=== PATIENT | male | born 1965 | race Caucasian/White ===

== ENCOUNTER 2017-01-07 19:32 | Emergency (ER) | payer SELFPAY ==
[2017-01-07 19:44] VITALS: BP 155/92
--- NOTE | 2017-01-07 20:02 | UC ---
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) - History Of Current Complaint Chief Complaint: UCUpperExtremity Stated Complaint: WRIST INJURY (WC) Time Seen by Provider: 01/07/17 19:51 Hx Obtained From: Patient Onset/Duration: Sudden Onset, Lasting Hours Severity Initially: Moderate Severity Currently: Mild Pain Intensity: 3 - worse with movement Pain Scale Used: 0-10 Numeric Character Of Pain: Sharp, Aching Aggravating Factor(s): Movement Alleviating: Rest Associated Signs And Symptoms: Positive: Swelling Related History: Occupational Injury, Dominant Hand Right - Allergies/Home Medications Allergies/Adverse Reactions: Allergies Allergy/AdvReac Type Severity Reaction Status Date / Time No Known Allergies Allergy Verified 01/07/17 19:44 PMH/Surg Hx/FS Hx/Imm Hx Previously Healthy: Yes - Surgical History Surgical History: Yes Surgery Procedure, Year, and Place: Intrathecal pump for opioids and pain control [place] [facility] [place] SYNCHROMED II INTRATHECAL PUMP 1.5 ONLY) PUMP REPLACED 2011; Right Meniscus Repair 03/18/15 - Family History Known Family History: Positive: Hypertension - Social History Alcohol Use: Occasionally Alcohol Amount: 2-3 PER YEAR Substance Use Type: None Substance Use Comment - Amount & Last Used: intrathecal hydromorphone KLONIDINE Smoking Status (MU): Never Smoked Tobacco Have You Smoked in the Last Year: No Review of Systems Constitutional: Negative Skin: Negative Eyes: Negative ENT: Negative Respiratory: Negative Cardiovascular: Negative Gastrointestinal: Negative Genitourinary: Negative Motor: Negative Neurovascular: Negative Musculoskeletal: Arthralgia Neurological: Negative Psychological: Negative Is Patient Immunocompromised?: No All Other Systems Reviewed And Are Negative: Yes Physical Exam Triage Information Reviewed: Yes Appearance: Well-Appearing, No Pain Distress, Well-Nourished Vital Signs: Initial Vital Signs Temp 98 F 01/07/17 19:39 Pulse 70 01/07/17 19:39 Resp 16 01/07/17 19:39 BP 155/92 01/07/17 19:39 Pulse Ox 98 01/07/17 19:39 Vital Signs Reviewed: Yes Eyes: Positive: Conjunctiva Clear, Other: - small pupils ENT: Positive: Hearing grossly normal. Negative: Nasal congestion, Nasal drainage, Trismus, Muffled/hoarse voice Neck: Positive: Supple, Nontender Respiratory: Positive: Lungs clear, Normal breath sounds, No respiratory distress Cardiovascular: Positive: RRR, No Murmur Musculoskeletal: Positive: Other: - see image Neurological: Positive: Alert Psychological Exam: Normal Skin Exam: Normal Hand/Wrist Course/Dx - Differential Dx/Diagnosis Provider Diagnoses: left wrist sprain /suspect triangular fibrocartilage tear Discharge - Discharge Plan Condition: Stable Disposition: HOME Patient Education Materials: Wrist Sprain (ED) Referrals: Jose L White MD [Medical Doctor] - As Soon As Possible Janae Love MD [Primary Care Provider] - Additional Instructions: ice twice daily splint I am concerned you injured your triangular cartilage of the wrist I suggest ortho follow up Images Hands: 1 - tender/swollen
--- NOTE | 2017-01-07 20:26 | RAD ---
INDICATION: LEFT wrist pain following injury yesterday. Pain through distal radius and ulnar styloid process. COMPARISON: No relevant prior exams available on the [facility] [place]. TECHNIQUE: AP, lateral, and oblique views LEFT wrist. REPORT AND IMPRESSION: Negative for fracture or malalignment. No significant arthropathic change. Soft tissue swelling most prominent over the ulnar and volar aspects. Negative for subcutaneous emphysema.
== END 2017-01-07 21:06 | disposition home or self-care (01) ==
LOC: UCEAST 19:32
DX: S63.502A Unspecified sprain of left wrist, initial encounter (principal); X50.9XXA Other and unspecified overexertion or strenuous movements or postures, initial encounter; Y93.89 Activity, other specified; Y92.129 Unspecified place in nursing home as the place of occurrence of the external cause; Y99.0 Civilian activity done for income or pay
CPT/HCPCS: 99212; G0463

== ENCOUNTER 2020-02-08 00:54 | Inpatient (IN) ==
[2020-02-08] MEDS ORDERED: HYDROmorphone 1 MG/1 ML SYRINGE IV SLOW PU ONE (02:20)
[2020-02-08] MEDS ORDERED: Ondansetron 4 mg VIAL 2 MG/ML 2 ml VIAL IV ONE (02:27)
[2020-02-08 02:58] LABS: ABS Basophils 0.1 10^3/ul (0-0.2); ABS Eosinophils 0.5 10^3/ul (0-0.6); ABS Lymphocytes 1.8 10^3/ul (1.0-4.8); ABS Monocytes 0.6 10^3/ul (0-0.8); ABS Neutrophils 7.7 10^3/ul (1.5-7.7); Eosinophil % 4.9 %; Hematocrit 42 % (42-52); Hemoglobin 14.3 g/dL (14.0-18.0); Lymphocyte % 16.8 %; Mean Corpuscular HGB Conc 34 g/dL (31-36); Mean Corpuscular Hemoglobin 29 pg (27-31); Mean Corpuscular Volume 84 fL (80-94); Mean Platelet Volume 7.2 fL (7.4-10.4); Platelet Count 309 10^3/uL (150-450); Red Blood Count 4.96 10^6 /uL (4.18-5.48); Red Cell Distribution Width 13 % (10-15); White Blood Count 10.7 10^3/uL (3.5-10.8)
[2020-02-08 03:03] LABS: INR 1.1 (0.82-1.09)
[2020-02-08 03:07] LABS: Albumin 4.3 g/dL (3.2-5.2); Calcium 9.4 mg/dL (8.6-10.3); Potassium 3.7 mmol/L (3.5-5.0); Total Bilirubin 0.5 mg/dL (0.2-1.0)
[2020-02-08 03:14] LABS: Albumin/Globulin Ratio 1.2 (1-3); BUN/Creatinine Ratio 21.2 (8-20); EGFR African American 95.3 (>60); EGFR Non-African American 78.8 (>60); Globulin 3.5 g/dL (2-4); Total Protein 7.8 g/dL (6.4-8.9)
[2020-02-08 03:15] LABS: Troponin I 0.01 ng/mL (<0.03)
[2020-02-08] MEDS ORDERED: ORPHENADRINE CITRATE 100 MG PO PRN (05:17)
[2020-02-08] MEDS: HYDROmorphone 1 MG/1 ML SYRINGE IV PRN ×2 (06:06→11:49)
[2020-02-08 19:40] LABS: ABS Basophils 0.1 10^3/ul (0-0.2); ABS Eosinophils 0.3 10^3/ul (0-0.6); ABS Lymphocytes 2.1 10^3/ul (1.0-4.8); ABS Monocytes 0.5 10^3/ul (0-0.8); Eosinophil % 2.8 %; Hematocrit 41 % (42-52); Hemoglobin 13.6 g/dL (14.0-18.0); Mean Corpuscular HGB Conc 34 g/dL (31-36); Mean Corpuscular Hemoglobin 28 pg (27-31); Mean Corpuscular Volume 84 fL (80-94); Platelet Count 296 10^3/uL (150-450); Red Blood Count 4.86 10^6 /uL (4.18-5.48); Red Cell Distribution Width 13 % (10-15)
[2020-02-08 19:40] LABS: Urine Appearance Clear; Urine Bilirubin Negative (Negative); Urine Blood Negative (Negative); Urine Color Yellow; Urine Glucose Negative (Negative); Urine Ketones Negative (Negative); Urine Nitrite Negative (Negative); Urine Protein Negative (Negative); Urine Specific Gravity 1.018 (1.010-1.030); Urine Urobilinogen Negative (Negative)
[2020-02-08 19:48] LABS: Activated Partial Thrombo Time 34.8 seconds (26.0-38.0); INR 1.17 (0.82-1.09)
[2020-02-08 19:57] LABS: EGFR African American 86.2 (>60); EGFR Non-African American 71.3 (>60)
[2020-02-08] MEDS: Heparin 5000 UNITS/ML 1 mL VIAL SUBCUT SCH (21:47)
[2020-02-09] MEDS: Heparin 5000 UNITS/ML 1 mL VIAL SUBCUT SCH ×3 (06:19→20:14)
[2020-02-09] MEDS ORDERED: Influenza VAC *QUAD* 2020-21* 0.5 ML SYRINGE IM ONE (09:00)
[2020-02-09] MEDS ORDERED: Lidocaine 1% MPF 5 ML VIAL ONE (14:48)
[2020-02-09] MEDS: Senna TAB 8.6 mg TAB PO SCH (19:56)
[2020-02-10] MEDS: Ondansetron 4 mg VIAL 2 MG/ML 2 ml VIAL IV PRN ×2 (03:49→07:57)
[2020-02-10] MEDS: HYDROmorphone 1 MG/1 ML SYRINGE IV PRN ×2 (06:03→20:10)
[2020-02-10] MEDS: Heparin 5000 UNITS/ML 1 mL VIAL SUBCUT SCH (06:05)
[2020-02-10] MEDS: Senna TAB 8.6 mg TAB PO PRN (10:17)
[2020-02-10] MEDS: Enoxaparin 40 MG/0.4 ML SYR SUBCUT SCH (13:16)
[2020-02-10] MEDS ORDERED: Magnesium Hydroxide LIQ 30 ML UDC PO ONE (13:59)
[2020-02-10] MEDS ORDERED: Magnesium Hydroxide LIQ 30 ML UDC PO PRN (14:10)
[2020-02-10] MEDS ORDERED: fentaNYL PATCH 25 MCG/HR 1 PATCH TRANSDERM SCH (15:00)
[2020-02-10] MEDS: fentaNYL Patch Check Q Shift NOTE FOLLOW UP SCH (19:04)
[2020-02-10] MEDS: Senna TAB 8.6 mg TAB PO SCH (20:12)
[2020-02-11] MEDS: HYDROmorphone 1 MG/1 ML SYRINGE IV PRN ×2 (04:40→17:37)
[2020-02-11] MEDS: Morphine ORAL.SOLN 10 mg 2 mg/ml UDC 5 ml (10 mg) PO PRN ×2 (06:18→23:26)
[2020-02-11] MEDS: fentaNYL Patch Check Q Shift NOTE FOLLOW UP SCH ×2 (06:57→18:44)
[2020-02-11] MEDS: Polyethylene Glycol 3350 17 GM PACKET PO SCH (08:43)
[2020-02-11] MEDS: Senna TAB 8.6 mg TAB PO PRN (08:44)
[2020-02-11] MEDS: Enoxaparin 40 MG/0.4 ML SYR SUBCUT SCH (14:22)
[2020-02-11] MEDS: Ondansetron 4 mg VIAL 2 MG/ML 2 ml VIAL IV PRN (18:07)
[2020-02-11] MEDS: Senna TAB 8.6 mg TAB PO SCH (20:02)
[2020-02-11] MEDS: Morphine ER 30 mg TAB ** extended release PO SCH (20:02)
[2020-02-12] MEDS: HYDROmorphone 1 MG/1 ML SYRINGE IV PRN ×5 (03:07→23:52)
[2020-02-12] MEDS: Morphine ORAL.SOLN 10 mg 2 mg/ml UDC 5 ml (10 mg) PO PRN ×2 (07:32→16:06)
[2020-02-12] MEDS: Ondansetron 4 mg VIAL 2 MG/ML 2 ml VIAL IV PRN ×2 (07:35→21:14)
[2020-02-12] MEDS: Morphine ER 30 mg TAB ** extended release PO SCH ×2 (08:47→19:35)
[2020-02-12] MEDS: Polyethylene Glycol 3350 17 GM PACKET PO SCH (08:48)
[2020-02-12] MEDS: Enoxaparin 40 MG/0.4 ML SYR SUBCUT SCH (14:13)
[2020-02-12] MEDS: Senna TAB 8.6 mg TAB PO SCH (21:12)
[2020-02-13] MEDS: Morphine ORAL.SOLN 10 mg 2 mg/ml UDC 5 ml (10 mg) PO PRN ×3 (02:38→19:27)
[2020-02-13] MEDS: Morphine ER 30 mg TAB ** extended release PO SCH ×2 (02:38→11:05)
[2020-02-13] MEDS: HYDROmorphone 1 MG/1 ML SYRINGE IV PRN ×3 (05:47→23:55)
[2020-02-13] MEDS: Polyethylene Glycol 3350 17 GM PACKET PO SCH (08:04)
[2020-02-13] MEDS: Ondansetron 4 mg VIAL 2 MG/ML 2 ml VIAL IV PRN (08:05)
[2020-02-13] MEDS: Enoxaparin 40 MG/0.4 ML SYR SUBCUT SCH (13:07)
[2020-02-13] MEDS ORDERED: HYDROmorphone 1 MG/1 ML SYRINGE IV SLOW PU PRN (17:45)
[2020-02-13] MEDS: Morphine ER 15 mg TAB ** extended release PO SCH (19:24)
[2020-02-13] MEDS: Senna TAB 8.6 mg TAB PO SCH (21:45)
[2020-02-14] MEDS: Morphine ER 15 mg TAB ** extended release PO SCH ×2 (02:35→11:52)
[2020-02-14] MEDS: Morphine ORAL.SOLN 10 mg 2 mg/ml UDC 5 ml (10 mg) PO PRN (02:36)
[2020-02-14] MEDS: HYDROmorphone 1 MG/1 ML SYRINGE IV PRN (06:12)
[2020-02-14] MEDS: Polyethylene Glycol 3350 17 GM PACKET PO SCH (08:06)
[2020-02-14] MEDS: Ondansetron 4 mg VIAL 2 MG/ML 2 ml VIAL IV PRN (08:07)
[2020-02-14] MEDS: Enoxaparin 40 MG/0.4 ML SYR SUBCUT SCH (14:26)
[2020-02-14] MEDS ORDERED: LORazepam 2 mg VIAL 1 ml IV PUSH ONE (14:43)
[2020-02-14] MEDS ORDERED: Lorazepam PYXIS KEY PRN (14:43)
[2020-02-14] MEDS ORDERED: Gadoteridol (CONTRAST) 279.3 MG/ML 10 ML IV ONE (16:24)
[2020-02-14] MEDS: Morphine ER 30 mg TAB ** extended release PO SCH (19:38)
[2020-02-14] MEDS: Senna TAB 8.6 mg TAB PO SCH (23:02)
[2020-02-15] MEDS: Morphine ER 30 mg TAB ** extended release PO SCH ×3 (02:47→18:21)
[2020-02-15] MEDS: HYDROmorphone 1 MG/1 ML SYRINGE IV PRN ×4 (02:47→23:16)
[2020-02-15] MEDS: Polyethylene Glycol 3350 17 GM PACKET PO SCH (08:09)
[2020-02-15 11:35] LABS: Mean Platelet Volume 7.3 fL (7.4-10.4); Platelet Count 315 10^3/uL (150-450)
[2020-02-15] MEDS: Enoxaparin 40 MG/0.4 ML SYR SUBCUT SCH (12:22)
[2020-02-15] MEDS: Morphine ORAL.SOLN 10 mg 2 mg/ml UDC 5 ml (10 mg) PO PRN ×2 (14:16→20:42)
[2020-02-15 20:35] VITALS: BP 142/87
[2020-02-15] MEDS: Senna TAB 8.6 mg TAB PO SCH (20:44)
== END 2020-02-15 11:25 | disposition short-term general hospital (02) | DRG 813 ==
LOC: ED 00:54 → MED 00:54
PROVIDERS: ADMIT Nurse Practitioner; ATTEND Internal Medicine

== ENCOUNTER 2020-05-29 15:12 | Inpatient (IN) ==
[2020-05-29] MEDS ORDERED: Dexamethasone IV 4 MG/ML VIAL 1 ml VIAL IV SLOW PU ONE (15:28)
[2020-05-29 15:55] LABS: Hematocrit 41 % (42-52); Hemoglobin 13.8 g/dL (14.0-18.0); Mean Corpuscular HGB Conc 34 g/dL (31-36); Mean Corpuscular Hemoglobin 28 pg (27-31); Mean Corpuscular Volume 82 fL (80-94); Mean Platelet Volume 6.6 fL (7.4-10.4); Platelet Count 294 10^3/uL (150-450); Red Blood Count 4.93 10^6 /uL (4.18-5.48); Red Cell Distribution Width 13 % (10-15); White Blood Count 3.7 10^3/uL (3.5-10.8)
[2020-05-29] MEDS ORDERED: Ondansetron 4 mg VIAL 2 MG/ML 2 ml VIAL IV ONE (15:56)
[2020-05-29 16:13] LABS: Troponin I 0.01 ng/mL (<0.03)
[2020-05-29 16:20] LABS: Albumin/Globulin Ratio 1.2 (1-3); BUN/Creatinine Ratio 13.3 (8-20); C Reactive Protein 26.69 mg/L (<8.01); Calcium 8.3 mg/dL (8.6-10.3); EGFR African American 116.8 (>60); EGFR Non-African American 96.5 (>60); Globulin 3.4 g/dL (2-4); Potassium 4.1 mmol/L (3.5-5.0); Total Bilirubin 0.5 mg/dL (0.2-1.0); Total Protein 7.4 g/dL (6.4-8.9)
[2020-05-29 16:27] LABS: Activated Partial Thrombo Time 34.3 seconds (26.0-38.0); INR 1.1 (0.82-1.09)
[2020-05-29] MEDS ORDERED: Metoclopramide 5 MG/ML VIAL (10 mg) IV ONE (16:46)
[2020-05-29] MEDS ORDERED: cefTRIAXone 1 gm/50 mL NS BAG 1 GM/50 ML BAG IV ONE (16:49)
[2020-05-29] MEDS ORDERED: Azithromycin 500 mg/250 ml NS 500 MG/250 ML BAG IVPB ONE (16:49)
[2020-05-29 16:50] LABS: Ferritin 345.5 ng/mL (24-336)
[2020-05-29 16:58] LABS: Influenza A Molecular Negative (Negative); Influenza B Molecular Negative (Negative)
[2020-05-29 17:06] LABS: ABS Lymphocytes 0.9 10^3/ul (1.0-4.8); ABS Monocytes 0.2 10^3/ul (0-0.8); ABS Neutrophils 2.5 10^3/ul (1.5-7.7); Eosinophil % 0.6 %; Lymphocyte % 25.6 %; Nucleated Red Blood Cells % 0.1
[2020-05-29] MEDS ORDERED: Remdesivir 100 mg Vial 200 MG in NS 0.9% 250 ml 210 ML IV ONE (17:53)
[2020-05-29] MEDS ORDERED: Albuterol HFA INHALER 8 gm MDI INH PRN (17:56)
[2020-05-29] MEDS ORDERED: Al Hydrox/Mg Hydrox/Simet LIQ 30 ML UDC PO PRN (17:58)
[2020-05-29] MEDS ORDERED: Morphine ORAL.SOLN 10 mg 2 mg/ml UDC 5 ml (10 mg) PO PRN (18:34)
[2020-05-29 21:28] LABS: Urine Appearance Clear; Urine Bilirubin Negative (Negative); Urine Blood Negative (Negative); Urine Color Yellow; Urine Glucose Negative (Negative); Urine Ketones Negative (Negative); Urine Nitrite Negative (Negative); Urine Protein Negative (Negative); Urine Specific Gravity 1.012 (1.010-1.030); Urine Urobilinogen Positive (Negative)
[2020-05-29] MEDS: NS 0.9% 1000 ml BAG 1,000 ML IV SCH (22:15)
[2020-05-29] MEDS: Ondansetron 4 mg VIAL 2 MG/ML 2 ml VIAL IV PRN (22:15)
[2020-05-29] MEDS: Enoxaparin 40 MG/0.4 ML SYR SUBCUT SCH (22:18)
[2020-05-30 09:10] LABS: Hematocrit 38 % (42-52); Hemoglobin 12.5 g/dL (14.0-18.0); Mean Corpuscular HGB Conc 33 g/dL (31-36); Mean Corpuscular Hemoglobin 28 pg (27-31); Mean Corpuscular Volume 84 fL (80-94); Mean Platelet Volume 6.8 fL (7.4-10.4); Platelet Count 287 10^3/uL (150-450); Red Blood Count 4.51 10^6 /uL (4.18-5.48); Red Cell Distribution Width 14 % (10-15); White Blood Count 2.9 10^3/uL (3.5-10.8)
[2020-05-30] MEDS: Ondansetron 4 mg VIAL 2 MG/ML 2 ml VIAL IV PRN (09:42)
[2020-05-30] MEDS: NS 0.9% 1000 ml BAG 1,000 ML IV SCH (09:42)
[2020-05-30 09:48] LABS: Albumin 3.4 g/dL (3.2-5.2); Albumin/Globulin Ratio 1.1 (1-3); BUN/Creatinine Ratio 14.3 (8-20); Calcium 8.1 mg/dL (8.6-10.3); EGFR African American 142.2 (>60); EGFR Non-African American 117.5 (>60); Globulin 3.2 g/dL (2-4); Potassium 4.3 mmol/L (3.5-5.0); Total Bilirubin 0.4 mg/dL (0.2-1.0); Total Protein 6.6 g/dL (6.4-8.9)
[2020-05-30 10:53] LABS: INR 1.17 (0.82-1.09)
[2020-05-30 11:10] LABS: ABS Lymphocytes 0.9 10^3/ul (1.0-4.8); ABS Monocytes 0.2 10^3/ul (0-0.8); ABS Neutrophils 1.8 10^3/ul (1.5-7.7); Lymphocyte % 29.9 %
[2020-05-30] MEDS: Enoxaparin 40 MG/0.4 ML SYR SUBCUT SCH (20:20)
[2020-05-30] MEDS ORDERED: Remdesivir 100 mg Vial 100 MG in NS 0.9% 250 ml 230 ML IV SCH (21:00)
[2020-05-31] MEDS: Ondansetron 4 mg VIAL 2 MG/ML 2 ml VIAL IV PRN (03:01)
[2020-05-31 07:14] LABS: Hematocrit 36 % (42-52); Hemoglobin 11.9 g/dL (14.0-18.0); Mean Corpuscular HGB Conc 33 g/dL (31-36); Mean Corpuscular Hemoglobin 28 pg (27-31); Mean Corpuscular Volume 84 fL (80-94); Mean Platelet Volume 7.1 fL (7.4-10.4); Platelet Count 300 10^3/uL (150-450); Red Blood Count 4.29 10^6 /uL (4.18-5.48); Red Cell Distribution Width 14 % (10-15); White Blood Count 5.3 10^3/uL (3.5-10.8)
[2020-05-31 07:26] LABS: BUN/Creatinine Ratio 16.5 (8-20); Calcium 8.4 mg/dL (8.6-10.3); EGFR African American 113.7 (>60); EGFR Non-African American 93.9 (>60); Potassium 4.3 mmol/L (3.5-5.0)
[2020-05-31] MEDS: Ondansetron 4 mg VIAL 2 MG/ML 2 ml VIAL IV SCH ×2 (09:55→15:02)
[2020-05-31 12:27] VITALS: BP 128/70
== END 2020-05-31 17:00 | disposition home or self-care (01) | DRG 137 ==
LOC: ED 15:12 → MED 17:58
PROVIDERS: ADMIT Internal Medicine; ATTEND Internal Medicine